=== PATIENT | male | born 1995 | race Two or more races ===

== ENCOUNTER 2025-10-07 18:48 | Emergency (ER) | payer OTHER ==
[~2025-10-07] VITALS: Ht 177.8 cm; Wt 88.5 kg
[2025-10-07] MEDS ORDERED: KETOROLAC TROMETHAMINE 30 MG VIAL IM STA (21:01)
[2025-10-07] MEDS ORDERED: CEFTRIAXONE SODIUM 1,000 MG VIAL IM STA (21:02)
[2025-10-07 22:15] LABS: BASO % 0.6 % (0.1-1.2); EOS # 0.32 (0.04-0.54); EOS % 3.3 % (0.7-7.0); LYMPH # 2.02 (1.18-3.74); LYMPH % 20.8 % (19.3-53.1); MEAN PLATELET VOLUME 9.20 fl (9.4-12.4); MONO # 1.18 (0.24-0.82); NEUT # 6.06 (1.56-6.13); NEUT % 62.6 % (34.0-71.1); RED CELL DISTRIBUTION WIDTH 12.8 % (11.6-14.4)
[2025-10-07 22:18] LABS: MONO % 12.2 % (4.7-12.5)
[2025-10-07 23:29] LABS: COVID-19 AG NEGATIVE (NEGATIVE)
== END 2025-10-08 00:18 | disposition home or self-care (01) ==
LOC: ER 18:48
PROVIDERS: General Practice
DX: L02.419 Cutaneous abscess of limb, unspecified (principal); R05.8 Other specified cough; Z20.822 Contact with and (suspected) exposure to COVID-19